=== PATIENT | female | born 1955 | race Caucasian/White ===

== ENCOUNTER 2021-11-15 14:03 | Observation (INO) ==
[2021-11-15 15:44] LABS: Bacteria,Urine Few per hpf (None-Few); Bilirubin,Urine Negative (Negative); Blood,Urine Large (Negative); Clarity,Urine Turbid (Clear); Color,Urine Light-Yellow (Yellow); Glucose,Urine (UA) Normal (Normal); Ketones,Urine Negative (Negative); Leukocyte Esterase,Urine Large (Negative); Mucus,Urine Few per lpf (None-Few); Nitrite,Urine Negative (Negative); PH,Urine 5.5 pH Units (5.0-8.0); Protein,Urine 30 mg/dL (Neg-Trace); RBC,Urine TNTC per hpf (0-3); Specific Gravity,Urine 1.017 (1.010-1.025); Squamous Epithelial Cell,Urine Few per hpf (None-Few); Urobilinogen,Urine Normal (Normal); WBC,Urine TNTC per hpf (0-3)
[2021-11-15 16:40] LABS: Basophils % 0.3 %; Eosinophils % 0.1 %; Hematocrit 21.1 % (35.3-44.9); Hemoglobin 6.9 g/dL (11.5-15.4); Immature Granulocytes % 0.7 % (0-4); Lymphocytes # 1.3 K/mcL (0.6-4.6); Lymphocytes % 11.6 %; Mean Corpuscular HGB Conc 32.7 g/dL (31.6-35.5); Mean Corpuscular Hemoglobin 32.5 pg (28.0-33.3); Mean Corpuscular Volume 99.5 fL (83.0-100.0); Mean Platelet Volume 10.2 fL (9.4-12.4); Monocytes # 0.3 K/mcL (0.0-1.3); Monocytes % 3.1 %; Neutrophils # 9.3 K/mcL (1.6-8.9); Platelet Count 261 K/mcL (140-400); Red Blood Count 2.12 M/mcL (3.82-4.97); Red Cell Distribution Width 12.7 % (11.5-14.5); Segmented Neutrophils % 84.2 %
[2021-11-15] MEDS ORDERED: Iopamidol - 370 500 ML MLS IVP ONE (16:42)
[2021-11-15] MEDS ORDERED: Ketorolac 30 MG/ML VIAL IVP ONE (16:42)
[2021-11-15 17:18] LABS: Albumin 4.2 g/dL (3.5-5.7); Albumin/Globulin Ratio 1.3 (1.1-2.2); Bilirubin,Direct 0.1 mg/dL (0.0-0.2); Bilirubin,Indirect 0.5 mg/dL (0.0-1.0); Bilirubin,Total 0.6 mg/dL (0.3-1.0); Calcium 9.5 mg/dL (8.6-10.3); Globulin 3.3 g/dL (2.4-3.5); Potassium 4.8 mEq/L (3.5-5.1); Total Protein 7.5 g/dL (6.4-8.9)
[2021-11-15] MEDS ORDERED: 0.9 % Sodium Chloride 500 ML ONE (19:23)
[2021-11-15] MEDS ORDERED: LYSTEDA PO SCH (21:00)
[2021-11-15] MEDS: LYSTEDA PO SCH (23:11)
[2021-11-15] MEDS ORDERED: ALPRAZolam 1 MG TABLET PO PRN (23:35)
[2021-11-16 05:29] LABS: Hematocrit 24.1 % (35.3-44.9); Hemoglobin 7.8 g/dL (11.5-15.4); Mean Corpuscular HGB Conc 32.4 g/dL (31.6-35.5); Mean Corpuscular Volume 95.6 fL (83.0-100.0); Mean Platelet Volume 10.2 fL (9.4-12.4); Platelet Count 264 K/mcL (140-400); Red Blood Count 2.52 M/mcL (3.82-4.97); Red Cell Distribution Width 13.9 % (11.5-14.5); White Blood Count 13.5 K/mcL (4.3-11.1)
[2021-11-16 07:36] LABS: INR 1.1; Prothrombin Time 12.3 Seconds (9.4-12.1)
[2021-11-16 07:39] LABS: Activated Partial Thrombo Time 24.3 Seconds (26.0-36.0)
[2021-11-16] MEDS: LYSTEDA PO SCH ×2 (07:56→15:49)
[2021-11-16] MEDS ORDERED: *HR* Metformin 500 MG TABLET PO SCH (08:00)
[2021-11-16 08:30] VITALS: BP 112/61; PULSE 87; TEMP 98; O2SAT 96
[2021-11-16 08:57] LABS: Estimated Average Glucose 146 mg/dl; Hemoglobin A1C 6.7 %
== END 2021-11-16 17:00 | disposition home or self-care (01) ==
LOC: EMEROOARM 14:03 → 1NENUOBS 14:03
PROVIDERS: ADMIT Obstetrics & Gynecology; ATTEND Obstetrics & Gynecology